=== PATIENT | female | born 1980 | race Hispanic/Latino ===

== ENCOUNTER 2017-06-22 20:00 | Inpatient (IN) | payer OTHER ==
[2017-06-22 20:15] VITALS: BMI 29.9
[2017-06-22 21:16] LABS: BASO % 0.3 % (0.0-2.0); EOS % 0.1 % (0.0-4.0); HEMOGLOBIN 10.9 g/dL (12.0-16.0); LYMPH # 2.5 K/uL (1.0-4.3); LYMPH % 24.7 % (20.0-40.0); MEAN CELL VOLUME 88.6 fl (81.0-99.0); MEAN CORPUSCULAR HEMOGLOBIN 31.4 pg (27.0-31.0); MEAN CORPUSCULAR HGB CONC 35.4 g/dL (33.0-37.0); MEAN PLATELET VOLUME 8.1 fl (7.2-11.7); MONO # 0.5 K/uL (0.0-0.8); MONO % 4.7 % (0.0-10.0); NEUT % 70.2 % (50.0-75.0); NRBC % 0.1 % (0.0-0.0); RBC 3.48 Mil/uL (3.80-5.20); RED CELL DISTRIBUTION WIDTH 17.4 % (11.5-14.5)
--- NOTE | 2017-06-22 21:32 | OBADHP ---
Datetime: 06/22/2017 20:24 Admit Comment, IP Provider: 36 yo with IUP at 40+4 weeks gestational age by LMP, with LOGAN 8, here for induction of labor. Denies vaginal bleeding, loss of fluid, regular contractions. Reports good movement. ROS: denies headache, dizziness, chest pain, dyspnea, abdominal pain, nausea, vomiting, diarrhea, burning w/ urination. care: Dr. Abby East GBS neg, HIV neg, RPR neg, GC/CL neg, HbsAg neg, ABO Opos, antibody neg, Rubella immune OBGYN hx: no prior pregnancies, no hx STI PMHx: no chronic conditions Past Surg hx: nasal surgery in childhood Social hx: denies tobacco, alcohol, drug use Allergies: NKDA Meds: PNV FHR 140s, +accels Bedside sono: vertex presentation A/P 36 yo G1 with IUP at 40+ weeks. Admit to unit. Induction with cervidil. Pt seen/discussed w/ Dr. Korina [email or web address] OB Hospitalist on-call...I saw and examiend this patient with PGY1 ... Agree with note MAHNDO Extremities - PN: Normal Abdomen - PN: Normal Back - PN: Normal Lungs - PN: Normal Heart - PN: Normal Neurologic - PN: Normal HEENT - PN: Normal General - PN: Normal FHR - Baseline A Provider: 140 Comments, ACOG Physical Exam: Bedside sono: vertex presentation IP Hx Assessment: The History has been Reviewed and is Current Vital Signs Provider: Reviewed IP Chief Complaint: Scheduled induction of labor NICHD Variability Prov Fetus A: Moderate 6-25bpm NICHD Accel Fetus A IP Provider: [id number] FHR Category Provider Fetus A: Category I NICHD Decel Fetus A IP Provider: None Genitourinary Exam: Normal IP Adm Impression: Postterm, intrauterine ; No Active Labor; Intact Membranes IP Admit Plan: Admit to unit; Initiate labor induction protocol
--- NOTE | 2017-06-22 22:13 | OBPN ---
Datetime: 06/22/2017 22:00 IP Progress Note Comment: Cervidil placed intravaginally Datetime: 06/22/2017 20:24 FHR - Baseline A Provider: 140 Vital Signs Provider: Reviewed NICHD Accel Fetus A IP Provider: [id number] FHR Category Provider Fetus A: Category I NICHD Variability Prov Fetus A: Moderate 6-25bpm NICHD Decel Fetus A IP Provider: None
[2017-06-23] MEDS ORDERED: Oxytocin 30 units/LR 500ML 30 U/500 ML BAG IV ONE (14:18)
[2017-06-23] MEDS: Lactated Ringer's 1,000 ML IV SCH ×2 (14:20→14:56)
[2017-06-23] MEDS ORDERED: Lactated Ringer's 1,000 ML IV SCH (14:30)
[2017-06-23] MEDS ORDERED: Bupivacaine HCl 0.25% PF (10 ml) Inj ONE (15:00)
[2017-06-23] MEDS ORDERED: Fentanyl/Bupivacaine HCl 250 ML EPI ONE (15:00)
[2017-06-23] MEDS ORDERED: Lidocaine 1% 20 MG/2 ML PF AMP ONE (21:24)
--- NOTE | 2017-06-23 22:51 | OBPN ---
Datetime: 06/23/2017 22:47 IP Progress Impression: Normal progression of labor IP Progress Plan: Continue present management FHR - Baseline A Provider: 145 IP Progress Note Comment: pt doing well FHR reactive toco ctx q4 sve 8/100/0 cont present maagement adequate pelvis vtx anticipate efw 7lbs NICHD Variability Prov Fetus A: Moderate 6-25bpm Dilatation, Provider: 8 Effacement, Provider: 100 Station, Provider: 0 NICHD Decel Fetus A IP Provider: None
--- NOTE | 2017-06-24 00:23 | OBDS ---
DELIVERY PERSONNEL Delivery Doctor: Abby East MD Gang Saw Operator: ECroweRN Anesthesiologist: Tori uHghes MD MATERNAL INFORMATION Delivery Anesthesia: Epidural Medications in Delivery: Pitocin 30 units in 500 mls Estimated Blood Loss (ml): 150 Placenta Cultured: No RN Comments: Cord Blood Kit used during delivery - [id number] Provider Comments: Delivered a live baby boy at 2333 the baby was bulb suctioned on the perineum and transferred to the maternal chest. The cord was clamped and cut and cord blood was obtained and elder ected. Three-vessel cord was noted. The placenta was delivered at 2347 intact, the estimated blood lo ss was 250 mL. There was a second-degree laceration was repaired with 2-0 rapidet. The mother tolerat ed the procedure well the baby went to the well baby nursery with Apgars of 9 and 9 weighing 3200 g LABOR SUMMARY EDC: 06/18/2017 00:00 No. Babies in Womb: 1 Attempted: No Labor Anesthesia: Epidural LABOR INFORMATION Reason for Induction: Postterm Onset of Labor: 06/23/2017 18:30 Complete Dilatation: 06/23/2017 20:00 Cervical Ripening Agents: Cervidil Oxytocin: Augmentation Group B Beta Strep: Negative Antibiotics # of Doses: N/A Antibiotics Time of Last Dose: N/A Steroids Given: None Reason Steroids Not Administered: Not Applicable MEMBRANES Membranes Rupture Method: Artificial Rupture of Membranes: 06/23/2017 10:10 Amniotic Fluid Color: Clear Amniotic Fluid Amount: Moderate Amniotic Fluid Odor: Normal STAGES OF LABOR Stage 1 hrs: 1 Stage 1 min: 30 VAGINAL DELIVERY Episiotomy: None Laceration Extension: Second Degree Laceration Type: Perineal Laceration Repair: Yes Initial Vag Sponge Count: 15 Final Vag Sponge Count: 15 Initial Vag Sharps Count: 1 Final Vag Sharps Count: 1 Sponge Count Correct: Yes Sharps Count Correct: Yes Count Comment: MD confirmed count BABY A INFORMATION Born in Route : No : N/A (Annotations: Data stored by [facility] on behalf of user) PRESENTATION/POSITION BABY A Presentation: Cephalic IDENTIFICATION/MEDS BABY A ID Band Number: [id number] ID Band Location: Left Leg; Left Arm WEIGHT/LENGTH BABY A Infant Birthweight (gms): 3200 Weight (lb): 7 Weight (oz): 1
[2017-06-24] MEDS ORDERED: Oxycodone/Acetaminophen 5/325 mg Tab PO PRN ×4 (00:52→02:04)
[2017-06-24] MEDS ORDERED: Benzocaine/Menthol SPRAY TOP PRN ×2 (00:52→02:04)
[2017-06-24] MEDS ORDERED: Lactated Ringer's 1,000 ML IV SCH (02:04)
[2017-06-24 06:11] LABS: HEMOGLOBIN 8.6 g/dL (12.0-16.0); MEAN CELL VOLUME 87.4 fl (81.0-99.0); MEAN CORPUSCULAR HGB CONC 36.6 g/dL (33.0-37.0); RBC 2.69 Mil/uL (3.80-5.20); RED CELL DISTRIBUTION WIDTH 17.7 % (11.5-14.5); WHITE BLOOD COUNT 19.8 K/uL (4.8-10.8)
[2017-06-24] MEDS: Multivitamin With Minerals Tab PO SCH (08:43)
[2017-06-24] MEDS ORDERED: Multivitamin With Minerals Tab PO SCH (09:00)
[2017-06-25] MEDS: Multivitamin With Minerals Tab PO SCH (08:14)
--- NOTE | 2017-06-25 10:01 | OBPPN ---
Datetime: 06/24/2017 09:58 PP Pain Prov: Within normal limits PP Nausea Prov: Denies PP Flatus Prov: Yes PP BM Prov: Yes PP Breasts Prov: Normal PP Heart Prov: Normal PP Lungs Prov: Normal PP Abdomen/Uterus Prov: Normal PP Lochia Prov: Normal PP Vulva/Perineum Prov: Normal PP CVA Tenderness Prov: Normal PP Extremities Prov: Normal PP Comments Phys Exam Prov: Abdomen soft, nontender, nondistended Uterus firm, below umbilicus No deep Tenderness bilaterally PP Impression Prov: Normal progression PP Plan Prov: Continue present management PP Progress Note Prov: day #1 status post , patient recovered well Regular diet Controlled Ambulate Anticipate discharge home tomorrow IP PP Procedures: None Vital Signs Provider PP: Reviewed; Within Normal Limits
--- NOTE | 2017-06-25 11:53 | OBDCSUM ---
Datetime: 06/25/2017 11:52 Discharged to, Provider: Home Follow up at, Provider: Domi Disch Instr Activity: Normal activity Disch Instr Diet: Regular Discharge Instructions, Provider: Routine instructions given Discharge Diagnosis, Provider: Term Delivered Follow up in weeks, Provider: 6w Disch Referrals: None Contraception discussed, Prov: Yes Disch Activity Restrictions: No sexual activity; Nothing in vagina - Jacinto, tampons, douche
--- NOTE | 2017-06-25 11:53 | OBPPN ---
Datetime: 06/25/2017 11:51 PP Pain Prov: Within normal limits PP Nausea Prov: Denies PP Flatus Prov: Yes PP Breasts Prov: Normal PP Heart Prov: Normal PP Lungs Prov: Normal PP Abdomen/Uterus Prov: Normal PP Lochia Prov: Normal PP Vulva/Perineum Prov: Normal PP CVA Tenderness Prov: Normal PP Extremities Prov: Normal PP Progress Prov: Normal PP Impression Prov: Normal progression PP Plan Prov: Discharge PP Progress Note Prov: She feels fine ready to go home Hb 8 (asymptomatic) Rubella and VZV Immune A: S/P day 2 PLAN: dischsarge home Ferralet 90 PO QD follow up in 6w Vital Signs Provider PP: Reviewed; Within Normal Limits
[2017-06-25 22:45] VITALS: BP 100/64; PULSE 87; RESP 18; TEMP 97.4; O2SAT 100
== END 2017-06-25 15:00 | disposition home or self-care (01) | DRG 775 ==
LOC: H.L&D 20:04 → H.OB/GYN 06-24 01:10
PROVIDERS: ADMIT Obstetrics & Gynecology; ATTEND Obstetrics & Gynecology
PROC: 4A1HXCZ Monitoring of Products of Conception, Cardiac Rate, External Approach (ICD-10-PCS; 2017-06-22)
PROC: 10E0XZZ Delivery of Products of Conception, External Approach (ICD-10-PCS; principal; 2017-06-23)
PROC: 0KQM0ZZ Repair Perineum Muscle, Open Approach (ICD-10-PCS; 2017-06-23)
DX: O48.0 Post-term pregnancy (principal); Z37.0 Single live birth; Z3A.40 40 weeks gestation of pregnancy; O70.1 Second degree perineal laceration during delivery